=== PATIENT | female | born 1985 | race Hispanic/Latino ===

== ENCOUNTER → 2024-08-10 | Outpatient (CLI) | payer OTHER ==
--- NOTE | 2024-08-10 11:05 | HMCIMG ---
MR SPINAL CANAL, LUMBAR WO CON REASON: M54.9 Dorsalgia, unspecified COMPARISON: None TECHNIQUE: Routine lumbar imaging protocol was performed. FINDINGS: There are normal appearing vertebral bodies. Intervertebral disc space heights are preserved. Alignment is normal. There are no focal osseous lesions. Axial images show widely patent spinal canal and thecal sac. There is no disc herniation or focal spinal stenosis. Neural foramina are widely patent. Surrounding soft tissues appear normal. IMPRESSION: 1. Normal MRI lumbar spine.
== END | disposition home or self-care (01) ==
LOC: RAH 08:45
PROVIDERS: ATTEND Psychiatry & Neurology Psychiatry
DX: M54.9 Dorsalgia, unspecified (principal)
CPT/HCPCS: 72148